=== PATIENT | female | born 1995 | race Caucasian/White ===

== ENCOUNTER 2019-01-28 23:00 | Observation (INO) | payer MEDICAID ==
[~2019-01-28] VITALS: Ht 170.2 cm; Wt 83.9 kg
[2019-01-28 23:14] VITALS: BP 132/76; Ht 170.2 cm; Wt 83.9 kg
[2019-01-28] MEDS ORDERED: LR(*) 1000 ML BAG 1,000 ML IV PRN (23:23)
[2019-01-28] MEDS ORDERED: DLR(*) 1000 ML BAG 1,000 ML IV PRN (23:23)
[2019-01-29] MEDS ORDERED: NIFEdipine 10 MG CAP PO ONE
[2019-01-29] MEDS ORDERED: TERBUTALINE SULF 1 MG/ML VIAL SC ONE
[2019-01-29] MEDS: NITROFURANTOIN MONO 100 MG PO SCH ×2 (00:40→11:55)
[2019-01-29] MEDS: LR(*) 1000 ML BAG 1,000 ML IV PRN ×4 (00:43→08:08)
[2019-01-29] MEDS ORDERED: PREN-127 PO (00:58)
[2019-01-29] MEDS: NIFEdipine 10 MG CAP PO SCH ×2 (05:25→11:55)
--- NOTE | 2019-01-29 10:35 | History & Physical ---
History of Present Illness Age of Patient: 23 : 2 Para or TPAL: 1 EDC per LMP: Mar 17, 2019 Estimated Gestational Age: 33.1 Chief Complaint Contractions History of Present Illness Presents with report of regular painful contractions yesterday. Presents at 1 cm and soft, urine dark and concentrated. No loss of fluid, no bleeding. History of prior delivery at 37 weeks. History Obstetrical History: prior at 37 weeks Allergies: Coded Allergies: No Known Drug Allergies (Unverified , 01/29/19) Med Rec Home Meds Reported Medications Vits W-Ca,Fe,Fa(<1MG) ( VITAMINS) 1 Each Tablet, 1 EACH PO DAILY, TAB 01/29/19 Review of Systems All Systems Reviewed/Normal: Yes, Except as Noted Musculoskeletal: Pain (low back) Exam General Exam Vital Signs Vital Signs Date Time Temp Pulse Resp B/P (MAP) Pulse Ox O2 Delivery O2 Flow Rate FiO2 01/28/19 23:14 97.3 88 21 132/76 (94) 94 Room Air General Apperance: Alert/Awake/No Acute Distress Neuro: No Gross deficits Cardiovascular: Regular Rate and Rhythm Respiratory: No Respiratory Distress, Clear to Auscultation Abdomen: Soft, Non-Tender, Non-Distended, Gravid - Non-Tender Musculoskeletal: Other (low back pain, no CVA tenderness) Extremities: No Cyanosis,Clubbing or Edema Integumentary: Skin Intact without Lesions or Rash Psychological: Alert & Oriented X3, Appropriate Mood & Affect Cervical Dialation: 1 Cervical Effacement (%): 70 Cervical Consistency: Soft Cervical Position: Posterior Station: -2 Uterine Contractions(Q min): 10 Uterine Contraction Strength: Mild (irregular) Fetus Heart Tone Variabilty: Moderate FHT Accelerations: 15X15 FHT Category: I Medical Decision Making Data Points Hematology Test 01/28/19 23:14 01/29/19 00:28 Urine Color Yellow Urine Clarity Slightly-cloudy Urine pH 6.0 pH (4.8-9.5) Urine Specific [place] 1.023 Urine Protein Negative mg/dL (NEGATIVE) Urine Glucose (UA) Negative mg/dL (NEGATIVE) Urine Ketones 80 mg/dL (NEGATIVE) Urine Blood Negative (NEGATIVE) Urine Nitrite Positive (NEGATIVE) Urine Bilirubin Negative (NEGATIVE) Urine Urobilinogen Negative mg/dL (0.2-1.9) Urine Leukocyte Esterase Small (NEGATIVE) Urine RBC 1 /HPF (0-2/HPF) Urine WBC 11 /HPF (0-5/HPF) Urine Squamous Epithelial Cells Many /LPF (</=FEW) Urine Transitional Epithelial Cells Few /LPF (NONE-FEW) Urine Bacteria Few /HPF (NONE-FEW) Urine Mucus Few /HPF (NONE-FEW) Fibronectin Negative Chemistry Test 01/28/19 23:14 01/29/19 00:28 Urine Color Yellow Urine Clarity Slightly-cloudy Urine pH 6.0 pH (4.8-9.5) Urine Specific [place] 1.023 Urine Protein Negative mg/dL (NEGATIVE) Urine Glucose (UA) Negative mg/dL (NEGATIVE) Urine Ketones 80 mg/dL (NEGATIVE) Urine Blood Negative (NEGATIVE) Urine Nitrite Positive (NEGATIVE) Urine Bilirubin Negative (NEGATIVE) Urine Urobilinogen Negative mg/dL (0.2-1.9) Urine Leukocyte Esterase Small (NEGATIVE) Urine RBC 1 /HPF (0-2/HPF) Urine WBC 11 /HPF (0-5/HPF) Urine Squamous Epithelial Cells Many /LPF (</=FEW) Urine Transitional Epithelial Cells Few /LPF (NONE-FEW) Urine Bacteria Few /HPF (NONE-FEW) Urine Mucus Few /HPF (NONE-FEW) Fibronectin Negative Urinalysis Test 01/28/19 23:14 Urine Color Yellow Urine Clarity Slightly-cloudy Urine pH 6.0 pH (4.8-9.5) Urine Specific [place] 1.023 Urine Protein Negative mg/dL (NEGATIVE) Urine Glucose (UA) Negative mg/dL (NEGATIVE) Urine Ketones 80 mg/dL (NEGATIVE) Urine Blood Negative (NEGATIVE) Urine Nitrite Positive (NEGATIVE) Urine Bilirubin Negative (NEGATIVE) Urine Urobilinogen Negative mg/dL (0.2-1.9) Urine Leukocyte Esterase Small (NEGATIVE) Urine RBC 1 /HPF (0-2/HPF) Urine WBC 11 /HPF (0-5/HPF) Urine Squamous Epithelial Cells Many /LPF (</=FEW) Urine Transitional Epithelial Cells Few /LPF (NONE-FEW) Urine Bacteria Few /HPF (NONE-FEW) Urine Mucus Few /HPF (NONE-FEW) VTE Prophylasis: Adult Deep Vein Thrombosis/Pulmonary: No Pharmacological Contraindicati: Pt at Low Risk for VTE Mechanical Contraindications: Pt at Low Risk for VTE Assessment and Plan Problems: (1) Threatened labor, antepartum Assessment & Plan: hydration and tocolytics. No steroids for now as no immediate threat of labor. Her cervix is stable and contractions spacing out with treatment. Will send home with Procardia to use prn for contractions and continue abx. F/U later this week. (2) UTI (urinary tract infection) during Status: Acute Assessment & Plan: abx for next week. Culture pending but already showing gram negative rods. Problem Qualifiers (1) UTI (urinary tract infection) during : Trimester: third trimester Qualified Codes: O23.43 - Unspecified infection of urinary tract in , third trimester TANI ANN MD Jan 29, 2019 10:34
--- NOTE | 2019-01-29 10:38 | Short(Outpt) Discharge Summary ---
Discharge Summary Reason for Hosp/Final Diag: (1) Threatened labor, antepartum Hospital Course & Plan: hydration and tocolytics. No steroids for now as no immediate threat of labor. Her cervix is stable and contractions spacing out with treatment. Will send home with Procardia to use prn for contractions and continue abx. F/U later this week. (2) UTI (urinary tract infection) during Status: Acute Hospital Course & Plan: abx for next week. Culture pending but already showing gram negative rods. Departure Discharge to: Home, Self Care Discharge Instructions Home Meds Reported Medications Vits W-Ca,Fe,Fa(<1MG) ( VITAMINS) 1 Each Tablet, 1 EACH PO IRASEMA LY, TAB 01/29/19 Follow up Referrals: [employer] - First Available @ [facility] with TANI ANN MD Diet: Regular Activity: As Tolerated, No Heavy Lifting, No Exertion Copies to: TANI ANN MD ; Problem Qualifiers (1) UTI (urinary tract infection) during : Trimester: third trimester Qualified Codes: O23.43 - Unspecified infection of urinary tract in , third trimester TANI ANN MD Jan 29, 2019 10:38
[2019-01-29] MEDS ORDERED: NIFE10CA38 PO (12:21)
== END 2019-01-29 10:37 | disposition home or self-care (01) ==
LOC: OB 23:00
PROVIDERS: ADMIT Obstetrics & Gynecology; ATTEND Obstetrics & Gynecology
DX: O47.03 False labor before 37 completed weeks of gestation, third trimester (principal); Z3A.33 33 weeks gestation of pregnancy; O23.43 Unspecified infection of urinary tract in pregnancy, third trimester
CPT/HCPCS: 59025; 81001; 82731; 87077; 87088; 87186; 87210; 96372; G0378; G0379; J3105; J7120

== ENCOUNTER 2019-02-06 18:52 | Observation (INO) | payer MEDICAID ==
[~2019-02-06] VITALS: Ht 170.2 cm; Wt 83.9 kg
[~2019-02-06 18:52] MED LIST: NIFE10CA38 PO; PREN-127 PO
[2019-02-06 19:10] VITALS: BP 137/74; Ht 170.2 cm; Wt 83.9 kg
[2019-02-06] MEDS ORDERED: SULF-198 PO (19:27)
[2019-02-06] MEDS ORDERED: NIFEdipine 10 MG CAP PO ONE ×2 (19:45→19:49)
[2019-02-06] MEDS ORDERED: TERBUTALINE SULF 1 MG/ML VIAL SC ONE (19:45)
[2019-02-06] MEDS ORDERED: TERBUTALINE SULF 1 MG/ML VIAL ONE (19:48)
[2019-02-06] MEDS ORDERED: LR(*) 1000 ML BAG 2,000 ML ONE (19:49)
[2019-02-06] MEDS: LR(*) 1000 ML BAG 1,000 ML IV SCH ×2 (20:27→21:06)
[2019-02-06] MEDS: ACETAMINOPHEN 500 MG TAB PO PRN (21:48)
[2019-02-06] MEDS: BETAMETHASONE/ACETATE 6 MG/1ML IM SCH (21:48)
[2019-02-07] MEDS ORDERED: NIFEdipine 10 MG CAP PO SCH (02:00)
[2019-02-07] MEDS: LR(*) 1000 ML BAG 1,000 ML IV SCH ×2 (02:04→05:16)
[2019-02-07] MEDS: ACETAMINOPHEN 500 MG TAB PO PRN (05:25)
--- NOTE | 2019-02-07 08:41 | History & Physical ---
History of Present Illness Age of Patient: 23 : 2 Para or TPAL: 1 EDC per LMP: Mar 17, 2019 Estimated Gestational Age: 34.3 Chief Complaint Contractions History of Present Illness Presents feeling like she is in labor with regular painful contractions. She was seen last week for the same and had negative FFN and cx was 1cm then. She was sent home on Procardia and she took one yesterday afternoon without relief. She was found to have UTI last time as well and treated with abx over the last week. Culture grew E.coli. Pt feels a tight band around her waist and into lower back. Denies bleeding or loss of fluid. History Allergies: Coded Allergies: No Known Drug Allergies (Unverified , 01/29/19) Med Rec Home Meds Reported Medications Sulfamethoxazole/Trimet 800-160 Mg Tab (BACTRIM DS TABLET) 1 Each Tablet, 1 TAB PO Q12H, TAB 02/06/19 Nifedipine 10 Mg Cap (PROCARDIA 10 MG CAP) 10 Mg Capsule, 10 MG PO Q6H for CONTRACTIONS, #60 CAPSULE 2 Refills 01/29/19 Vits W-Ca,Fe,Fa(<1MG) ( VITAMINS) 1 Each Tablet, 1 EACH PO DAILY, TAB 01/29/19 Review of Systems Other As per HPI. All other systems reported Negative. Exam General Exam Vital Signs Vital Signs Date Time Temp Pulse Resp B/P (MAP) Pulse Ox O2 Delivery O2 Flow Rate FiO2 02/06/19 19:10 97.5 81 18 137/74 (95) 97 Room Air General Apperance: Alert/Awake/No Acute Distress Cardiovascular: Regular Rate and Rhythm Respiratory: No Respiratory Distress, Clear to Auscultation Abdomen: Soft, Non-Tender, Non-Distended, Gravid - Non-Tender Musculoskeletal: No Weakness/Pain, Other (no CVA TTP) Integumentary: Skin Intact without Lesions or Rash Psychological: Alert & Oriented X3, Appropriate Mood & Affect Cervical Dialation: 3 (RN exam) Cervical Effacement (%): 50 Station: -2 Fetus Heart Tone Variabilty: Moderate FHT Accelerations: 15X15 FHT Category: I Medical Decision Making Data Points Hematology Test 02/06/19 19:22 Urine Color Yellow Urine Clarity Cloudy Urine pH 6.0 pH (4.8-9.5) Urine Specific [place] 1.013 Urine Protein 30 mg/dL (NEGATIVE) Urine Glucose (UA) Negative mg/dL (NEGATIVE) Urine Ketones Negative mg/dL (NEGATIVE) Urine Blood Negative (NEGATIVE) Urine Nitrite Positive (NEGATIVE) Urine Bilirubin Negative (NEGATIVE) Urine Urobilinogen Negative mg/dL (0.2-1.9) Urine Leukocyte Esterase Moderate (NEGATIVE) Urine RBC 2 /HPF (0-2/HPF) Urine WBC 8 /HPF (0-5/HPF) Urine Squamous Epithelial Cells Many /LPF (</=FEW) Urine Bacteria Few /HPF (NONE-FEW) Urine Mucus None /HPF (NONE-FEW) Chemistry Test 02/06/19 19:22 Urine Color Yellow Urine Clarity Cloudy Urine pH 6.0 pH (4.8-9.5) Urine Specific [place] 1.013 Urine Protein 30 mg/dL (NEGATIVE) Urine Glucose (UA) Negative mg/dL (NEGATIVE) Urine Ketones Negative mg/dL (NEGATIVE) Urine Blood Negative (NEGATIVE) Urine Nitrite Positive (NEGATIVE) Urine Bilirubin Negative (NEGATIVE) Urine Urobilinogen Negative mg/dL (0.2-1.9) Urine Leukocyte Esterase Moderate (NEGATIVE) Urine RBC 2 /HPF (0-2/HPF) Urine WBC 8 /HPF (0-5/HPF) Urine Squamous Epithelial Cells Many /LPF (</=FEW) Urine Bacteria Few /HPF (NONE-FEW) Urine Mucus None /HPF (NONE-FEW) Urinalysis Test 02/06/19 19:22 Urine Color Yellow Urine Clarity Cloudy Urine pH 6.0 pH (4.8-9.5) Urine Specific [place] 1.013 Urine Protein 30 mg/dL (NEGATIVE) Urine Glucose (UA) Negative mg/dL (NEGATIVE) Urine Ketones Negative mg/dL (NEGATIVE) Urine Blood Negative (NEGATIVE) Urine Nitrite Positive (NEGATIVE) Urine Bilirubin Negative (NEGATIVE) Urine Urobilinogen Negative mg/dL (0.2-1.9) Urine Leukocyte Esterase Moderate (NEGATIVE) Urine RBC 2 /HPF (0-2/HPF) Urine WBC 8 /HPF (0-5/HPF) Urine Squamous Epithelial Cells Many /LPF (</=FEW) Urine Bacteria Few /HPF (NONE-FEW) Urine Mucus None /HPF (NONE-FEW) [facility] *LIVE* [address] [place] [address] MITCHELL CAN M.D., DIRECTOR OF LABORATORY SERVICES LISA ESCALANTE M.D., PATHOLOGIST RUN DATE: 01/30/19 Specimen Inquiry Report PAGE 1 RUN TIME: 1301 PATIENT: PRIYANKA ANGEL ACCT: [id number] LOC: OB U: [id number] AGE/SX: ROOM: [facility] RE01/28/[address]: TANI ANN MD : 1995 BED: 306 DIS: 01/29/19 STATUS: DIS [place] TLOC: SPEC #: [id number] [place]: 01/29/19-UNK STATUS: COMP REQ #: [id number] RECD: 01/29/190039 [facility] DR: TANI ANN MD SOURCE: CCMS ENTR: 01/29/19-0006 [facility] DR: RAULC: ORDERED: CULT URINE COMMENTS: Has specimen been collected/obtained? Y ADDED TO SPECIMEN COLLECTED 01/28 8914 Procedure Result Verified URINE CULTURE Final 01/30/19-1301 Organism 1 ESCHERICHIA COLI >100,000 COL/ML ESC COLI M.I.C. RX --------- --- AMPICILLIN 4 S AMPICILLIN/SULBACTAM <=2 S CEFAZOLIN <=4 S CEFTAZIDIME <=1 S CEFTRIAXONE <=1 S CEFEPIME <=1 S CEFOXITIN <=4 S ERTAPENEM <=0.5 S CIPROFLOXACIN <=0.25 S GENTAMICIN 2 S IMIPENEM 0.5 S LEVOFLOXACIN <=0.12 S NITROFURANTOIN <=16 S PIPERACILLIN/TAZOBACTAM <=4 S TOBRAMYCIN <=1 S TRIMETHOPRIM/SULFAMETHOXAZOLE <=20 S END OF REPORT VTE Prophylasis: Adult Deep Vein Thrombosis/Pulmonary: No Pharmacological Contraindicati: Pt at Low Risk for VTE Mechanical Contraindications: Pt at Low Risk for VTE Assessment and Plan Problems: (1) Threatened labor, antepartum Assessment & Plan: IVFs and tocolysis. Will treat with steroids this time as her cervix has changed. U/S today. (2) UTI (urinary tract infection) during Status: Acute Assessment & Plan: Rocephin 1gm IV q 24 hours today. Problem Qualifiers (1) UTI (urinary tract infection) during : Trimester: third trimester Qualified Codes: O23.43 - Unspecified infection of urinary tract in , third trimester TANI ANN MD Feb 07, 2019 08:41
[2019-02-07] MEDS ORDERED: cefTRIAXone 1 GM VIAL IVP SCH (09:00)
[2019-02-07] MEDS ORDERED: BETAMETHASONE/ACETATE 6 MG/1ML IM SCH (09:00)
[2019-02-07] MEDS: NIFEdipine 10 MG CAP PO SCH ×3 (09:15→20:18)
--- NOTE | 2019-02-07 09:39 | RADIOLOGY IMAGING REPORT ---
[place] [facility] [place] NAME: Cristine Gee : 1995 MR: [id number] V: [id number] EXAM DATE: ORDERING PHYSICIAN: TANI ANN TECHNOLOGIST: Location: [facility] Patient: Cristine Gee : 1995 Visit/Account:[id number] Date of Sevice: 02/07/2019 Exam type: OB LIMITED History: Pre-term labor, check BRYAN and EFW Comparison: None. Findings: There is a single fetus in cephalic presentation The placenta is posterior heart rate 127 bpm BRYAN 16.6 cm, MVP 4.91 cm BPD: 8.94 cm; 36 weeks and two days percentile 89% Head circumference: 32.35 cm; 36 weeks and five days; 67th percentile Abdominal circumference: 30.96 cm; 35 weeks and zero days; 65th percentile Femur length 6.58 cm; 34 weeks and zero days; 24th percentile AUA: 35 weeks and four days. ARMANDO (AUA ): 03/10/2019 Gestational age by LMP: 34 weeks and four days. ARMANDO (LMP): 03/17/2019 Estimated weight 2551 g (plus /minus 3 73 g). 56th percentile IMPRESSION: 1. Single viable fetus in cephalic presentation with an estimated gestational age by measurements of 35 weeks and four days. Estimated gestational age by LMP is 34 weeks and four days. The estimated weight is 2551 g equivalent to the 56th percentile BRYAN 16.6 cm, MVP 4.91 cm Report Dictated By: Lolis Mccauley MD at 02/07/2019 9:02 AM Report E-Signed By: Lolis Mccauley MD at 02/07/2019 9:32 AM WSN:[email or web address]
--- NOTE | 2019-02-07 17:56 | Antimicrobial Stewardship ---
Antimicrobial Stewardship Empiricly appropriate: Yes (On Rocephin IV for UTI) Approriate Cultures done: No (Had urine culture from 01/30/19 but repeat culture for this hospitalization not done. The last culture was sensitive to Rocephin.) Renal/Hepatic dosing: Yes Reviewed for Drug Interaction: Yes Monitored for Toxicities: Yes Determine cumulative duration: 3-14 days JEREMIAH HERNANDEZ Feb 07, 2019 17:56
[2019-02-07] MEDS: BETAMETHASONE/ACETATE 6 MG/1ML IM SCH (20:37)
[2019-02-07] MEDS ORDERED: ZOLPIDEM TARTRATE 5 MG TAB PO SCH (21:00)
== END 2019-02-07 20:46 | disposition home or self-care (01) ==
LOC: OB 18:52
PROVIDERS: ADMIT Obstetrics & Gynecology; ATTEND Obstetrics & Gynecology
DX: O47.03 False labor before 37 completed weeks of gestation, third trimester (principal); O23.43 Unspecified infection of urinary tract in pregnancy, third trimester; Z3A.34 34 weeks gestation of pregnancy
CPT/HCPCS: 76815; 81001; 87081; 96372; G0378; G0379; J0696; J0702; J3105; J7120

== ENCOUNTER 2019-02-22 09:05 | Outpatient (CLI) | payer MEDICAID ==
[~2019-02-22 09:05] MED LIST changes: +SULF-198 PO
--- NOTE | 2019-02-22 12:39 | History & Physical ---
History of Present Illness Age of Patient: 23 : 2 Para or TPAL: 1 Estimated Gestational Age: 36.5 Chief Complaint contractions History of Present Illness Presented for contractions and evaluation for labor. Past Medical, Surgical, Family and Obstetric Histories reviewed. Please see [facility] [place]. History Allergies: Coded Allergies: No Known Drug Allergies (Unverified , 01/29/19) Med Rec Home Meds Reported Medications Sulfamethoxazole/Trimet 800-160 Mg Tab (BACTRIM DS TABLET) 1 Each Tablet, 1 TAB PO Q12H, TAB 02/06/19 Nifedipine 10 Mg Cap (PROCARDIA 10 MG CAP) 10 Mg Capsule, 10 MG PO Q6H for CONTRACTIONS, #60 CAPSULE 2 Refills 01/29/19 Vits W-Ca,Fe,Fa(<1MG) ( VITAMINS) 1 Each Tablet, 1 EACH PO DAILY, TAB 01/29/19 Review of Systems All Systems Reviewed/Normal: Yes, Except as Noted Exam General Exam General Apperance: Alert/Awake/No Acute Distress Neuro: No Gross deficits Cardiovascular: Regular Rate and Rhythm Extremities: No Cyanosis,Clubbing or Edema Integumentary: Skin Intact without Lesions or Rash Psychological: Alert & Oriented X3 Cervical Dialation: 3 Fetus Heart Tone Variabilty: Moderate FHT Accelerations: 15X15 FHT Category: I Medical Decision Making VTE Prophylasis: Adult Deep Vein Thrombosis/Pulmonary: No Pharmacological Contraindicati: Pt at Low Risk for VTE Mechanical Contraindications: Pt at Low Risk for VTE Assessment and Plan Problems: (1) Threatened labor Assessment & Plan: Pt observed for a period of time and did not change her cervix. Contractions were inconsistent and discharged home to take Procardia for contraction stability. Labor precautions given. (2) 36 weeks gestation of Problem Qualifiers (1) Threatened labor: Trimester: third trimester Qualified Codes: O47.03 - False labor before 37 completed weeks of gestation, third trimester TANI ANN MD Feb 22, 2019 12:39
[2019-02-24 08:00] VITALS: BMI 29.9
== END 2019-02-22 11:11 | disposition home or self-care (01) ==
LOC: OB 09:05 → UNDOADMIN 09:05 → L&D 09:05 → UNDODISIN 11:11 → L&D 11:11 → EDSTATUS 02-27 13:06
PROVIDERS: ATTEND Obstetrics & Gynecology
DX: O47.03 False labor before 37 completed weeks of gestation, third trimester (principal); Z3A.36 36 weeks gestation of pregnancy
CPT/HCPCS: 99213

== ENCOUNTER 2019-02-24 07:34 | Inpatient (IN) | payer MEDICAID ==
[~2019-02-24] VITALS: Ht 170.2 cm; Wt 86.6 kg
[2019-02-24 08:00] VITALS: BP 118/77; Ht 170.2 cm; Wt 86.6 kg
[2019-02-24] MEDS ORDERED: DLR(*) 1000 ML BAG 1,000 ML IV PRN (08:36)
[2019-02-24] MEDS ORDERED: FAMOTIDINE(*) 20MG/50ML PREMIX 50 ML IVPB PRN (08:36)
[2019-02-24] MEDS ORDERED: OXYTOCIN 30 UNIT/NS 500 ML 500 ML IV PRN ×2 (08:36→09:08)
[2019-02-24] MEDS ORDERED: cefOXitin/DEX(*) 2GM/50ML PREM 50 ML IVPB PRN (08:40)
[2019-02-24] MEDS ORDERED: FLUSH 10 ML SYR IVP PRN (08:40)
[2019-02-24] MEDS ORDERED: LIDOCAINE 1% LOCAL 300 MG/30ML INJ PRN (08:40)
[2019-02-24] MEDS ORDERED: METOCLOPRAMIDE 10 MG/2 ML SDV IVP PRN (08:40)
[2019-02-24] MEDS ORDERED: fentaNYL CITR 100 MCG/2 ML AMP IVP PRN (08:40)
[2019-02-24] MEDS ORDERED: fentaNYL CITR 100 MCG/2 ML AMP IT PRN (09:20)
[2019-02-24] MEDS ORDERED: FENTANYL/ROPIVACAINE 100 ML BAG EPI PRN (09:20)
[2019-02-24] MEDS ORDERED: BUPIVACAINE 0.5% INJ 30ML VIAL EPI PRN (09:20)
[2019-02-24] MEDS ORDERED: BUPIVACAINE 0.25% MPF INJ EPI PRN (09:20)
[2019-02-24] MEDS ORDERED: LIDOCAINE/PF 2% 200MG/10ML AMP 200 MG/10 ML AMPUL EPI PRN (09:20)
[2019-02-24] MEDS ORDERED: LIDO/EPI 2% MPF 1:200,000 20ML EPI PRN (09:20)
[2019-02-24 09:39] LABS: PLATELET COUNT, AUTOMATED 187 K/uL (150-450)
[2019-02-24] MEDS: LR(*) 1000 ML BAG 1,000 ML IV PRN ×2 (09:57→12:23)
--- NOTE | 2019-02-24 10:47 | Anesthesia OB Pre-Anes Eval ---
History of Present Illness Anesthesia Start Date: Feb 24, 2019 Anesthesia Start Time: 09:33 OB Anesthesia Diagnosis: spontaneous labor, other (past induced hypertention) Complications: none known EDC: Mar 17, 2019 : 2 Para: 1 Vital Signs: Vital Signs Date Time Temp Pulse Resp B/P (MAP) Pulse Ox O2 Delivery O2 Flow Rate FiO2 02/24/19 08:00 97.7 88 18 118/77 (91) 95 Room Air Hematology Test 02/24/19 09:21 White Blood Count 12.5 k/uL (4.5-11.0) H Red Blood Count 4.45 M/uL (4.17-5.56) Hemoglobin 12.9 g/dL (12.0-16.0) Hematocrit 38.1 % (34.0-47.0) Mean Corpuscular Volume 85.5 fL (80.0-96.0) Mean Corpuscular Hemoglobin 29.1 pg (26.0-33.0) Mean Corpuscular Hemoglobin Concent 34.0 g/dL (32.0-36.0) Red Cell Distribution Width 14.2 % (11.5-14.5) Platelet Count 187 K/uL (150-450) Mean Platelet Volume 8.2 fL (7.2-11.1) Neutrophils (%) (Auto) 72.5 % (39.4-72.5) Lymphocytes (%) (Auto) 19.3 % (17.6-49.6) Monocytes (%) (Auto) 7.6 % (4.1-12.4) Eosinophils (%) (Auto) 0.3 % (0.4-6.7) L Basophils (%) (Auto) 0.3 % (0.3-1.4) Nucleated RBC Relative Count (auto) 0.0 /100WBC Neutrophils # (Auto) 9.0 K/uL (2.0-7.4) H Lymphocytes # (Auto) 2.4 K/uL (1.3-3.6) Monocytes # (Auto) 0.9 K/uL (0.3-1.0) Eosinophils # (Auto) 0.0 K/uL (0.0-0.5) Basophils # (Auto) 0.0 K/uL (0.0-0.1) Nucleated RBC Absolute Count (auto) 0.00 K/uL Pain Ratin Result Diagram: 02/24/19 0921 Height (Inches): 67.00 Weight (Pounds): 191 BMI (kg/m2): 30 Past Medical History Medical History: other (Bipolar disorder, epilepsy - last sezure 1.5 years ago, not on meds., + smoking 6-7/day x11 years, + MJ use during ,) Surgical History: other (Tonsils age 12, NVD w epidural) Previous Anesthesia: general, epidural Attended Childbirth Classes?: No Hx Anesthesia Reactions: No Hx Family Anesthesia Reaction: No Home Meds Reported Medications Sulfamethoxazole/Trimet 800-160 Mg Tab (BACTRIM DS TABLET) 1 Each Tablet, 1 TAB PO Q12H, TAB 02/06/19 Nifedipine 10 Mg Cap (PROCARDIA 10 MG CAP) 10 Mg Capsule, 10 MG PO Q6H for CONTRACTIONS, #60 CAPSULE 2 Refills 01/29/19 Vits W-Ca,Fe,Fa(<1MG) ( VITAMINS) 1 Each Tablet, 1 EACH PO DAILY, TAB 01/29/19 Allergies: Coded Allergies: No Known Drug Allergies (Unverified , 01/29/19) Anesthesia OB ROS Neurological: No migraines/headaches, No seizures, No neuropathy, No other Eyes ROS: contacts out ENT: Denies Tooth caps, Denies Loose teeth, Denies Chipped teeth, Denies Dentures, Denies Bridges, Denies Retainers, Denies Veneers, Denies Implants, Denies Tongue ring, Denies Other Pulmonary: No asthma; smoker (pks/day/yrs); No other Airway Class: ll Cardiovascular ROS: No edema, No arrhythmia, No other GI ROS: NPO Last Solids Date: Feb 24, 2019 Last Solids Time: 07:40 ROS: No Herpes, No STD(s), No Liver Disease, No Renal Disease, No Other Endocrine ROS: No diabetes, No gestational diabetes, No thyroid disorder, No other Musculoskeletal ROS: No low back pain, No low back injury, No scoliosis, No other ASA Classification: 3 Assessment and Plan Anesthesia Plan: CSE Assessment: DEscribes 5/10 pain w contractions. Cooperative w parental support. APOLLO RODRIGUEZ CRNA Feb 24, 2019 10:47
--- NOTE | 2019-02-24 11:05 | Procedure Note ---
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 Hand scrubed, sterile gloves, mask. Time out, Clear fenestrated drape.) Interspace: L 4-5 (Midline) Local Anesthetic: 1% Lidocaine, 25 Gauge Needle Amount Local - cc's: 2 Anesthesia Needle: 17g Touhy/Schliff Anesthesia Attempts: 1 Loss of Resistance: Normal Saline Depth of YOLANDA (cm): 6.1 Epidural Needle Placement: No CSF, No Blood, No Parasthesia Intrathecal Needle: 27 Gauge Pencan Cerebral Spinal Fluid: Yes, Clear, Sanguinous Catheter Insertion (cm): 4 Catheter Type: Rondon - Spring Wound Epidural Dressing: Tegaderm, Tape (Right abdomen) Anesthesia Tray: Lot Number ([id number]), Expiration Date (2020-01-30), Reference Number ([id number]) Anesthesia Medications: Intrathecal Dose: mcg Fentanyl (15 mcg), mg Marcaine MPF (0.25% 1.6 ml ), Time (1009) Epidural Test Dose: 1.5 Lido/Epi (1:200,000), Dose - mL (3), Time (1010), Negative Epidural Infusion: 0.2% Ropivicaine, With Fentanyl 2mcg/ml, Start Time: (1026) Epidural Pump Setting: Bolus Dose - mL (6), Lockout - Minutes (20), Maintenance Rate - mL/hr (7), Maximum per Hour - mL (25) Complications: None Comment: Pt reports pain decrease from 5/10 to 0/10 within 3 minutes of intrathecal dose. She cried out during localization of L4-5 but then was cooperative and in good position for block. VSS status post. Playing with cell phone [phone], level T 9 hernesto at.. APOLLO RODRIGUEZ CRNA Feb 24, 2019 11:05
[2019-02-24] MEDS ORDERED: LANOLIN OINT 7 GM TUBE TP PRN (16:55)
[2019-02-24] MEDS ORDERED: GLYCERIN/WITCH HAZEL LEAF 1 PK TP PRN (16:55)
[2019-02-24] MEDS ORDERED: INFLUENZA VIRUS VAC 0.5ML SYR IM ONLY ONE (16:55)
[2019-02-24] MEDS ORDERED: APAP/HYDROCODONE 325/5 TAB PO PRN (16:55)
[2019-02-24] MEDS ORDERED: MAGNESIUM HYDROXIDE* 30ML UDCP PO PRN (16:55)
[2019-02-24] MEDS ORDERED: BENZOCAINE 20% 60 ML BTL TP PRN (16:55)
[2019-02-24] MEDS ORDERED: HYDROCORTISONE 2.5% CR 30GM TB PR PRN (16:55)
--- NOTE | 2019-02-24 16:59 | History & Physical ---
History of Present Illness Age of Patient: 23 : 2 Para or TPAL: 1 EDC per LMP: Mar 17, 2019 Estimated Gestational Age: 37.0 Chief Complaint Presents with contractions and pain at 37.0 weeks and 5 cm dilation. complicated by her history of epilepsy but not on medication and over 1 year since her last episode. She has bipolar and is a smoker. She transferred to us at 32 weeks from [place]. Past Medical, Surgical, Family and Obstetric Histories reviewed. Please see [facility] chart. History Allergies: Coded Allergies: No Known Drug Allergies (Unverified , 01/29/19) Med Rec Home Meds Reported Medications Sulfamethoxazole/Trimet 800-160 Mg Tab (BACTRIM DS TABLET) 1 Each Tablet, 1 TAB PO Q12H, TAB 02/06/19 Nifedipine 10 Mg Cap (PROCARDIA 10 MG CAP) 10 Mg Capsule, 10 MG PO Q6H for CONTRACTIONS, #60 CAPSULE 2 Refills 01/29/19 Vits W-Ca,Fe,Fa(<1MG) ( VITAMINS) 1 Each Tablet, 1 EACH PO DAILY, TAB 01/29/19 Review of Systems All Systems Reviewed/Normal: Yes, Except as Noted Exam General Exam Vital Signs Vital Signs Date Time Temp Pulse Resp B/P (MAP) Pulse Ox O2 Delivery O2 Flow Rate FiO2 02/24/19 08:00 97.7 88 18 118/77 (91) 95 Room Air General Apperance: Alert/Awake/No Acute Distress Neuro: No Gross deficits Cardiovascular: Regular Rate and Rhythm Respiratory: No Respiratory Distress Abdomen: Soft, Non-Tender, Non-Distended Extremities: No Cyanosis,Clubbing or Edema Integumentary: Skin Intact without Lesions or Rash Psychological: Alert & Oriented X3 Cervical Dialation: 5 Cervical Effacement (%): 100 Cervical Consistency: Soft Cervical Position: Anterior Station: -2 Presentation: Vertex Fetus Heart Tone Variabilty: Moderate FHT Accelerations: 15X15 FHT Category: I Medical Decision Making Data Points Result Diagram: 02/24/19 0921 VTE Prophylasis: Adult Deep Vein Thrombosis/Pulmonary: No Pharmacological Contraindicati: Pt at Low Risk for VTE Mechanical Contraindications: Pt at Low Risk for VTE Assessment and Plan CAFETERIA CLERK Plan: Routine Labor/Induct Care Problems: (1) 37 or more completed weeks of gestation Assessment & Plan: Augment labor and rupture membranes. Expecting . (2) Normal labor TANI ANN MD Feb 24, 2019 16:59
--- NOTE | 2019-02-24 17:02 | OB Delivery Note ---
Delivery Note Vaginal Delivery Type: Spont. Vaginal Delivery Delivery Date: Feb 24, 2019 Delivery Time: 16:35 Estimated Gestational Age(wks): 37.0 Delivery Anesthesia: Epidural Sex: Male Weight (gms): 3000 Apgars: 1 Minute (9), 5 Minute (10) Estimated Blood Loss: 200 Delivery Complications: Nuchal Cord (x1) Notes: Presented in labor at 5 cm and having contractions. Pitocin augmentation and AROM used to promote progression. 5 cm by 1255 and AROM then with clear fluid. Progressed to 8 cm by 1429 and completely dilated at 1615. Pt set up for delivery and over 3 pushes, delivered head over intact perineum. Nuchal cord x 1 and shoulders delivered with pushing. Placenta delivered intact and spontaneous. No complications. Supervisor Throwing Department in Attendence: Yes Copies to: TANI ANN MD ; TANI ANN MD Feb 24, 2019 17:02
[2019-02-24] MEDS: IBUPROFEN 800 MG TAB PO SCH (17:23)
[2019-02-24 19:36] VITALS: BP 129/60
[2019-02-24] MEDS: DOCUSATE CALCIUM 240 MG CAP PO SCH (21:04)
[2019-02-24 23:35] VITALS: BP 115/59
[2019-02-25] MEDS: IBUPROFEN 800 MG TAB PO SCH ×3 (00:36→17:17)
[2019-02-25 03:48] VITALS: BP 127/59
[2019-02-25] MEDS: ACETAMINOPHEN 325 MG TAB PO PRN ×2 (06:50→13:07)
[2019-02-25 07:10] VITALS: BP 117/68
[2019-02-25] MEDS: DOCUSATE CALCIUM 240 MG CAP PO SCH ×2 (09:07→21:30)
--- NOTE | 2019-02-25 11:02 | OB/GYN Progress Note ---
OB Subjective Progress Notes Subjective Doing well. Pain well controlled and ambulating well. Bleeding light. Working on breast feeding and needs some more time. GI: NEG Nausea : Voiding Well Pain: Mild OB Objective Physical Exam Vital Signs Date Time Temp Pulse Resp B/P (MAP) Pulse Ox O2 Delivery O2 Flow Rate FiO2 02/25/19 07:10 97.9 86 16 117/68 (84) 94 Room Air Intake and Output 02/25/19 07:03 Intake Total 2740 ml Output Total 1700 ml Balance 1040 ml Intake Oral 240 ml IV Total 2500 ml Output Urine Total 1700 ml # Voids 2 General Appearance: Alert/Awake/No Acute Distress Neurological: No Gross deficits Cardiovascular: Normal Rhythm & Peripheral Pulses Respiratory: No Respiratory Distress Abdomen: Soft, Non-Tender, Non-Distended, Fundus Firm, Non-Tender Extremities: No Cyanosis,Clubbing or Edema Integumentary: Skin Intact without Lesions or Rash Psychological: Alert & Oriented X3 Result Diagram: 02/25/19 0635 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
--- NOTE | 2019-02-25 12:05 | OB/GYN Progress Note ---
OB Subjective Progress Notes Subjective Doing well. Pain well controlled and ambulating. Wants to shower. Working on breast feeding GI: NEG Nausea : Voiding Well Pain: Mild OB Objective Physical Exam Vital Signs Date Time Temp Pulse Resp B/P (MAP) Pulse Ox O2 Delivery O2 Flow Rate FiO2 02/25/19 07:10 97.9 86 16 117/68 (84) 94 Room Air Intake and Output 02/25/19 07:03 Intake Total 2740 ml Output Total 1700 ml Balance 1040 ml Intake Oral 240 ml IV Total 2500 ml Output Urine Total 1700 ml # Voids 2 General Appearance: Alert/Awake/No Acute Distress Neurological: No Gross deficits Cardiovascular: Normal Rhythm & Peripheral Pulses Respiratory: No Respiratory Distress Abdomen: Soft, Non-Tender, Non-Distended, Fundus Firm, Non-Tender Extremities: No Cyanosis,Clubbing or Edema Integumentary: Skin Intact without Lesions or Rash Psychological: Alert & Oriented X3 Result Diagram: 02/25/19 0635 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 Improving and feeling well. Up to shower and ambulate today. Continue to work on breast feeding. TANI ANN MD Feb 25, 2019 12:05
[2019-02-25 13:00] VITALS: BP 124/65
[2019-02-25 15:00] VITALS: BP 108/52
--- NOTE | 2019-02-25 17:32 | Anesthesia Post Eval Note ---
Anesthesia Post Eval Note Vital Signs 02/25/19 02/25/19 07:10 15:00 Temp 97.9 Pulse 75 Resp 15 B/P (MAP) 108/52 (70) Pulse Ox 94 O2 Delivery Room Air Pt able to participate in Eval: Yes Cardiovascular Status: Satisfactory Respiratory Status: Satisfactory Pain Managment: Satisfactory PO Nausea/Vomiting: Satisfactory Temperature Management: Satisfactory Mental Status: Satisfactory, Alert, Oriented X3 Post-Op Hydration Status: Satisfactory, Tolerating PO Well, Voiding w/o Difficulty Anesthesia Type: WAYNE TOWNSEND CRNA Feb 25, 2019 17:32
[2019-02-25 19:54] VITALS: BP 127/59
[2019-02-25 23:00] VITALS: BP 116/64
[2019-02-26] MEDS: IBUPROFEN 800 MG TAB PO SCH ×2 (01:07→09:05)
[2019-02-26 02:48] VITALS: BP 109/70
[2019-02-26] MEDS: DOCUSATE CALCIUM 240 MG CAP PO SCH (09:05)
[2019-02-26 10:30] VITALS: BP 124/74
--- NOTE | 2019-02-26 11:23 | OB/GYN Progress Note ---
OB Subjective Progress Notes Subjective Feeling well. Pain well controlled and ambulating well. Voiding without difficulty. GI: NEG Nausea : Voiding Well Pain: Mild OB Objective Physical Exam Vital Signs Date Time Temp Pulse Resp B/P (MAP) Pulse Ox O2 Delivery O2 Flow Rate FiO2 02/26/19 10:30 97.9 78 16 124/74 (91) 95 Room Air Intake and Output 02/26/19 07:03 Intake Total 220 ml Balance 220 ml Intake Oral 220 ml # Voids 2 General Appearance: Alert/Awake/No Acute Distress Neurological: No Gross deficits Cardiovascular: Normal Rhythm & Peripheral Pulses, Regular Rate and Rhythm Respiratory: No Respiratory Distress, Clear to Auscultation Abdomen: Soft, Non-Tender, Non-Distended, Fundus Firm, Non-Tender Extremities: No Cyanosis,Clubbing or Edema Integumentary: Skin Intact without Lesions or Rash Psychological: Alert & Oriented X3 Result Diagram: 02/25/19 0635 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 Home today. F/U at 6 weeks. Reviewed discharge instructions and precautions. TANI ANN MD Feb 26, 2019 11:23
[2019-02-26] MEDS ORDERED: IBUP800T37 PO (11:26)
--- NOTE | 2019-02-26 11:27 | OB/GYN Discharge Summary ---
Discharge Summary Reason for Hosp/Final Diag: (1) 37 or more completed weeks of gestation (2) Normal labor (3) care and examination immediately after delivery Hospital Course & Plan: s/p C/S for failure to progress. Home today. F/U at 6 weeks. Reviewed discharge instructions and precautions. Lates Vital Signs Vital Signs Date Time Temp Pulse Resp B/P (MAP) Pulse Ox O2 Delivery O2 Flow Rate FiO2 02/26/19 10:30 97.9 78 16 124/74 (91) 95 Room Air Weight (Pounds): 191 Result Diagram: 02/25/19 0635 Condition: Improved Discharge: Home, Self Senior Care Meds Reported Medications Sulfamethoxazole/Trimet 800-160 Mg Tab (BACTRIM DS TABLET) 1 Each Tablet, 1 TAB PO Q12H, TAB 02/06/19 Nifedipine 10 Mg Cap (PROCARDIA 10 MG CAP) 10 Mg Capsule, 10 MG PO Q6H for CONTRACTIONS, #60 CAPSULE 2 Refills 01/29/19 Vits W-Ca,Fe,Fa(<1MG) ( VITAMINS) 1 Each Tablet, 1 EACH PO DAILY, TAB 01/29/19 Follow up Referrals: BUSINESS SOLUTION ANALYST - In 6 Weeks @ [facility] with TANI SALCEDO MD Follow up with: Dr. Salcedo [phone] Follow up in: 6 wks PP or PO Discharge Diet: As Tolerates Discharge Activity: As Tolerates, No Heavy Lifting x 6 wks, No Heavy Lifting > 10lb, Pelvic Rest Copies to: TANI SALCEDO MD ; TANI SALCEDO MD Feb 26, 2019 11:27
[2019-02-26] MEDS ORDERED: DIPHTH/TETANUS/ACEL. PERTUSSIS IM ONLY ONE (16:55)
[2019-02-26] MEDS ORDERED: MEASLES,MUMP,RUBELLA VAC 0.5ML SUBQ ONE (16:55)
[2019-02-26] MEDS ORDERED: LR(*) 1000 ML BAG 1,000 ML ONE (18:51)
== END 2019-02-26 12:50 | disposition home or self-care (01) | DRG 807 ==
LOC: OB 07:34
PROVIDERS: ADMIT Obstetrics & Gynecology; ATTEND Obstetrics & Gynecology
PROC: 10E0XZZ Delivery of Products of Conception, External Approach (ICD-10-PCS; principal; 2019-02-24)
PROC: 10907ZC Drainage of Amniotic Fluid, Therapeutic from Products of Conception, Via Natural or Artificial Opening (ICD-10-PCS; 2019-02-24)
DX: O69.81X0 Labor and delivery complicated by cord around neck, without compression, not applicable or unspecified (principal); Z37.0 Single live birth; O99.344 Other mental disorders complicating childbirth; F31.9 Bipolar disorder, unspecified; Z3A.37 37 weeks gestation of pregnancy; Z87.891 Personal history of nicotine dependence
CPT/HCPCS: 36415; 85025; 85027; 86850; 86900; 86901; J2590; J3010; J7120; S0020